=== PATIENT | male | born 1990 | race Caucasian/White ===

== ENCOUNTER 2021-06-05 08:14 | Emergency (ER) | payer BC ==
[~2021-06-05] VITALS: Ht 182.9 cm; Wt 95.5 kg
[~2021-06-05 08:14] MED LIST: NO HOME MEDICATIONS
[2021-06-05 08:16] VITALS: TEMP 97.8
[2021-06-05 09:39] VITALS: BP 112/80; PULSE 70
== END 2021-06-05 09:45 | disposition home or self-care (01) ==
LOC: COL.ER 08:14
DX: S09.90XA Unspecified injury of head, initial encounter (principal); S60.512A Abrasion of left hand, initial encounter; S60.511A Abrasion of right hand, initial encounter; S00.212A Abrasion of left eyelid and periocular area, initial encounter; V17.4XXA Pedal cycle driver injured in collision with fixed or stationary object in traffic accident, initial encounter